=== PATIENT | female | born 2000 | race Caucasian/White ===

== ENCOUNTER 2018-06-12 18:14 | Emergency (ER) | payer MEDICAID ==
[~2018-06-12] VITALS: Ht 162.6 cm; Wt 93.8 kg
[2018-06-12 18:44] VITALS: BP 118/78
[2018-06-12 19:16] LABS: URINE HCG NEGATIVE (NEG)
[2018-06-12 19:18] LABS: CLARITY,URINE SLIGHTLY CLOUDY (Clear); COLOR,URINE YELLOW (Yellow); GLUCOSE, URINE NEGATIVE (Neg); KETONES,URINE NEGATIVE (Neg); LEUKOCYTE ESTERASE ,URINE MODERATE (Neg); NITRITES, URINE NEGATIVE (Neg); OCCULT BLOOD,URINE SMALL (Neg); PROTEIN,URINE 30 mg/dl (Neg)
[2018-06-12 19:29] LABS: MUCUS STRANDS MODERATE /LPF (Neg); SQUAMOUS EPITHELIAL CELL,UR MODERATE /LPF (FEW); UA COLLECTION TYPE CLN CATCH MIDSTREAM
[2018-06-12 19:30] LABS: BACTERIA,URINE 4+ /HPF (Neg); WBC,URINE 50-100 /HPF (0-4)
[2018-06-12] MEDS ORDERED: CEPH-572 PO (19:47)
== END 2018-06-12 20:09 | disposition home or self-care (01) ==
LOC: ER 18:15
DX: N39.0 Urinary tract infection, site not specified (principal); Z87.440 Personal history of urinary (tract) infections
CPT/HCPCS: 81001; 81025; 87077; 87088; 87186; 99284

== ENCOUNTER 2022-10-02 09:49 | Emergency (ER) | payer MEDICAID ==
[~2022-10-02] VITALS: Ht 162.6 cm; Wt 190.0 kg
[2022-10-02 10:35] VITALS: BP 125/80
== END 2022-10-02 12:18 | disposition home or self-care (01) ==
LOC: ER 09:50
DX: J02.9 Acute pharyngitis, unspecified (principal)
CPT/HCPCS: 87081; 87880; 99283